=== PATIENT | female | born 1975 | race Caucasian/White ===

== ENCOUNTER 2020-03-09 19:38 | Emergency (ER) | payer OTHER ==
--- NOTE | 2020-03-09 19:53 | EDM.PDOC ---
ED HPI GENERAL MEDICAL PROBLEM - General Chief Complaint: Skin Complaint Stated Complaint: shingles Time Seen by Provider: 03/09/20 19:40 Source of Information: Reports: Patient History Limitations: Reports: No Limitations - History of Present Illness INITIAL COMMENTS - FREE TEXT/NARRATIVE: Patient presents to ER with concerns about probable shingles. She states she has had 2 prior episodes of this in the past. On Thursday, started having pain in her right shoulder. Thought she may have strained it. Today around 5 pm, started to feel the itch/burn in the area and now has a small rash developing. She is currently on IV infusions for her Crohn's so states she actually seen infectious disease for this before. They recommended if she has outbreaks, she needs to be treated for twice as long as the usual dose. Has no pain with this episode at this time. Onset: Today Duration: Hour(s): Location: Reports: Back Quality: Reports: Other (itching) Severity: Mild Associated Symptoms: Reports: Rash Right Upper Posterior Shoulder Pain Score (Numeric/FACES): 1 - Related Data Allergies Allergy/AdvReac Type Severity Reaction Status Date / Time No Known Allergies Allergy Verified 03/09/20 19:52 Home Meds: Home Meds Ascorbate Calcium [Vitamin C] 500 mg PO DAILY 07/23/14 [History] Calcium Carbonate/Vitamin D3 [Calcium 500 + Vit D 200 Caplet] 1 tab PO DAILY 07/23/14 [History] Cholecalciferol (Vitamin D3) [Vitamin D] 1,000 unit PO DAILY 07/23/14 [History] Loratadine [Claritin] 10 mg PO DAILY 07/23/14 [History] Multivitamin [Multi Vitamin Daily] 1 tab PO DAILY 07/23/14 [History] [place]-3 Fatty Acids/Fish Oil [Fish Oil Softgel] 1 cap PO DAILY 07/23/14 [History] Folic Acid 1 mg PO DAILY 03/09/20 [History] Hydrocodone/Acetaminophen [Hydrocodone-Acetamin 5-325 mg] 1 tab PO Q4H PRN 03/09/20 [History] Labetalol HCl [Labetalol] 200 mg PO BID 03/09/20 [History] Pantoprazole Sodium [Protonix] 40 mg PO DAILY 03/09/20 [History] Vedolizumab [Entyvio] 300 mg IV ASDIRECTED 03/09/20 [History] valACYclovir [Valtrex] 1,000 mg PO DAILY #26 tab 03/09/20 [Rx] Past Medical History Cardiovascular History: Reports: Hypertension Gastrointestinal History: Reports: Inflammatory Bowel Disease Social & Family History - Tobacco Use Smoking Status *Q: Never Smoker ED ROS GENERAL - Review of Systems Review Of Systems: See Below Constitutional: Denies: Fever, Chills, Malaise, Weakness HEENT: Reports: No Symptoms Respiratory: Denies: Shortness of Breath, Cough Cardiovascular: Denies: Chest Pain, Edema, Lightheadedness Endocrine: Denies: Fatigue GI/Abdominal: Denies: Abdominal Pain, Nausea, Vomiting Skin: Reports: Pruritis, Rash Neurological: Reports: No Symptoms ED EXAM, SKIN/RASH Exam: See Below Exam Limited By: No Limitations General Appearance: Alert, WD/WN, No Apparent Distress Head: Normocephalic Neck: Normal Inspection, Supple, Non-Tender Respiratory/Chest: No Respiratory Distress, Lungs Clear, Normal Breath Sounds Cardiovascular: Regular Rate, Rhythm Neurological: Alert, Oriented Skin: Zoster-Like Rash (right shoulder) Course - Vital Signs Last Recorded V/S: Last Vital Signs Temp 98.1 F 03/09/20 19:47 Pulse 82 03/09/20 19:47 Resp 16 03/09/20 19:47 BP 135/63 03/09/20 19:47 Pulse Ox 97 03/09/20 19:47 - Orders/Labs/Meds Orders: Active Orders 24 hr Category Date Time Status valACYclovir [Valtrex] Med 03/09/20 20:00 Active 1,000 mg PO BID Medication Orders Valacyclovir HCl (Valtrex) 1,000 mg PO BID [facility] Meds: Medications Generic Name Dose Route Start Last Admin Trade Name Freq PRN Reason Stop Dose Admin Valacyclovir HCl 1,000 mg 03/09/20 20:00 Valtrex PO BID [facility] Departure - Departure Time of Disposition: 19:51 Disposition: Home, Self-Care 01 Condition: Good Clinical Impression: Shingles - Discharge Information *PRESCRIPTION DRUG MONITORING PROGRAM REVIEWED*: No *COPY OF PRESCRIPTION DRUG MONITORING REPORT IN PATIENT JORY: No Prescriptions: valACYclovir [Valtrex] 1,000 mg PO DAILY #26 tab Instructions: Shingles Forms: ED Department Discharge Additional Instructions: 1. Hydrocortisone cream to affected area for itch 2. Start Valtrex 1 gm twice a day for 14 days 3. Contact either myself or primary care provider if develop more pain and need for gabapentin to control it 4. Follow up for any concerns. Sepsis Event Note (ED) - Focused Exam Vital Signs: Vital Signs Temp Pulse Resp BP Pulse Ox 03/09/20 19:47 98.1 F 82 16 135/63 97 - My Orders Last 24 Hours: My Active Orders 03/09/20 20:00 valACYclovir [Valtrex] 1,000 mg PO BID - Assessment/Plan Last 24 Hours: My Active Orders 03/09/20 20:00 valACYclovir [Valtrex] 1,000 mg PO BID
[2020-03-09] MEDS: valACYclovir 500 MG Tab PO SCH ×2 (20:12→20:18)
== END 2020-03-09 20:22 | disposition home or self-care (01) ==
LOC: CC.ED 19:38
DX: B02.9 Zoster without complications (principal); I10 Essential (primary) hypertension; Z79.899 Other long term (current) drug therapy
CPT/HCPCS: 99282; A9270

== ENCOUNTER 2022-03-16 12:49 | Emergency (ER) | payer OTHER ==
[2022-03-16] MEDS ORDERED: Take Home: Cephalexin 500 MG Cap, 4 Cap Pack PO ONE (12:54)
[2022-03-16] MEDS ORDERED: Ciprofloxacin 0.3% Ophth Soln 5 ML Bottle EYELF SCH (13:00)
== END 2022-03-16 13:20 | disposition home or self-care (01) ==
LOC: CC.ED 12:49
DX: L03.213 Periorbital cellulitis (principal); I10 Essential (primary) hypertension; Z79.899 Other long term (current) drug therapy
CPT/HCPCS: 99282; 99283; A9270